=== PATIENT | female | born 1970 | race African-American/Black ===

== ENCOUNTER 2023-08-09 16:57 | Inpatient (IN) | payer OTHER, SELFPAY ==
[2023-08-09 17:16] VITALS: BP 175/101; PULSE 121; RESP 16; TEMP 36.6; O2SAT 98; BMI 30.9
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
[2023-08-09 18:03] VITALS: BP 150/95; PULSE 112; RESP 18; TEMP 36.4; O2SAT 97
--- NOTE | 2023-08-09 18:18 | PC.NURSE ---
pt refuses lab work. Per provider, this is a nonissue.
--- NOTE | 2023-08-09 18:35 | PC.NURSE ---
pt becoming more agitated, more focused on leaving. LIDYA Tyson, aware of patients escalation. Plan is to have see patient as soon as possible, develop plan for escalation.
--- NOTE | 2023-08-09 18:40 | MHC.EDTECH ---
PATIENT REFUSED LABS ,PROVIDER DAMARIS AND RN BLANCA AWARE .
[2023-08-09 20:03] LABS: MANUAL DIFF FLAG NO
[2023-08-09 20:04] LABS: Basophils Percent Auto 0.4 % (0-2); Eosinophils Percent Auto 0.2 % (0-4); Hematocrit 43.5 % (37.0-47.0); Hemoglobin 14.4 g/dl (12.0-16.0); Imm Gran Abs Auto 0.05 X10*3/uL (0.00-0.03); Imm Gran Pct Auto 0.5 % (0.0-0.4); Lymphocytes Absolute Auto 1.6 X10*3/uL (1.2-4.9); Lymphocytes Percent Auto 16.3 % (20-40); Mean Corpuscular HGB Conc 33.1 g/dl (31.0-35.0); Mean Corpuscular Hemoglobin 28.1 pg (27.0-33.0); Mean Platelet Volume 8.9 fL (9.4-12.3); Monocytes Absolute Auto 0.7 X10*3/uL (0.1-1.2); Monocytes Percent Auto 7.1 % (2-11); Neutrophils Absolute Auto 7.6 x10*3/uL (2.0-8.3); Neutrophils Percent Auto 75.5 % (45-73); Platelet Count 377 X10*3/uL (160-400); Red Blood Count 5.12 X10*6/uL (4.20-5.50); Red Cell Distribution Width 16.4 % (11.0-16.0); White Blood Count 10.1 X10*3/uL (4.8-10.8)
[2023-08-09 20:17] LABS: Valproate < 12.5 mcg/mL (50.0-100.0)
[2023-08-09 20:19] LABS: Alanine Aminotransferase 23 U/L (0-31); Albumin Level 4.7 g/dL (3.5-5.0); Alkaline Phosphatase 93 U/L (39-117); Anion Gap 16 (12-20); Aspartate Amino Transferase 37 U/L (5-31); Bilirubin Total 0.5 mg/dL (0.0-1.0); Blood Urea Nitrogen 12 mg/dL (9-16); Calcium 10.1 mg/dL (8.4-10.2); Carbon Dioxide 23 mmol/L (22-29); Chloride 105 mmol/L (96-108); Creatinine Clr Calc Pharmacy 87.4; Estimated Glomerular Filt Rate > 60; Ethanol < 10 mg/dL; Glucose Random 99 mg/dL (60-115); Magnesium 2.3 mg/dL (1.6-2.6); Potassium 3.5 mmol/L (3.3-5.1); Sodium 140 mmol/L (135-145); Total Protein 8.5 g/dL (6.5-8.0)
[2023-08-09 22:21] LABS: Appearance Urine Clear; Color Urine Yellow; Glucose Urine UA Negative (Negative); Leukocyte Esterase Urine Trace (Negative); Nitrite Urine Negative (Negative); PH 5.5 (5.0-9.0); UMIC TRIGGER UACC YES; Urine Blood Moderate (2+) (Negative); Urine Ketones 15 mg/dL (Negative); Urine Protein Trace mg/dL (Neg-Trace)
[2023-08-09 22:27] LABS: Amphetamine Screen Urine Not Detected (Not Detect); Barbiturates, Urine Not Detected (Not Detect); Benzodiazepines Screen Urine Not Detected (Not Detect); Cannabinoid Screen Urine Not Detected (Not Detect); Cocaine Screen Urine Not Detected (Not Detect); Fentanyl, urine Not Detected (Not Detect); Opiate Screen Urine Not Detected (Not Detect); Phencyclidine Screen Urine Not Detected (Not Detect)
[2023-08-09 22:32] LABS: Bacteria Urine 1+ (None Seen); Hyaline Casts Urine 0-2 /LPF (0-2); RBC Urine 0-2 /HPF (0-2); UACC Culture Trigger YES
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
--- NOTE | 2023-08-10 00:40 | PC.NURSE ---
Patient is sitting in common area, with difficulty repeated request patient agreed to provide urine sample and to have her lab drawn, patient is on 1:1 for safety check due to intrusive and exit seeking behavior, patient is highly accusatory not maliciously but due to paranoia, patient responding to internal stimuli, asking for discharge numerously, thought content paranoid, med rec completed but due to numerous change med is not approved yet, refused olanzapine per report, patient was assessed by care team placed on section 12, with disposition JUAN follow up due to inability to reach out to collateral, VSS, will continue to monitor.
[2023-08-10 06:09] VITALS: BP 160/95; PULSE 105; RESP 18; O2SAT 99
--- NOTE | 2023-08-10 06:29 | PC.NURSE ---
Patient was whole night sitting the common are watching TV, 1:1 for safety check, attempted to exit couple of times requiring security presence, VSS, will continue to monitor.
[2023-08-10 18:16] VITALS: RESP 18
--- NOTE | 2023-08-10 18:17 | PC.NURSE ---
Marlene was OOB and pacing in the halls for most of the shift today. Very preoccupied and observed engaging in self dialoguing for most of the shift. Marlene tried pushing on the door several times and had to be redirected. Marlene also was redirected when going into peers rooms. There were several requests for clean clothes today which were given and multiple beverages although she has not eaten any solid food. Much of Marlene's dialoguing has been about the chioma and redemption. She instructed staff at one point to wash our hands and come have seats so the chioma could instruct us where to go. When we did not Marlene verbalized we would all be by tonight . No medications ordered or given.
--- NOTE | 2023-08-10 18:23 | PC.NURSE ---
Marlene remains on a 1:1 for safety.
--- NOTE | 2023-08-10 20:05 | PC.NURSE ---
Addendum entered by Alfa Cook RN 08/10/23 20:11: Pt remains 1:1 for safety and elopement risk at this time. Original Note: Assumed care of pt. Pt ambulating on unit with no acute medical or behavioral concerns at this time. Pt engaged with staff, delusional and occasionally inappropriate. Otherwise, compliant with staff requests.
--- NOTE | 2023-08-10 21:58 | PC.NURSE ---
Pt remains sitting in common area, intermittently up and ambulating short distances, then returning to chair. Pt stating that she believes she will be going home this pm. Reoriented to current environment and plan of care. No acute medical or behavioral concerns at this time. 1:1 sitter present for safety and elopement risk.
[2023-08-10 22:00] VITALS: RESP 18
--- NOTE | 2023-08-10 22:53 | PC.NURSE ---
Assumed care of patient at 2245, patient resting on chair in common area at this time, respirations even and unlabored, skin pwd, no apparent distress. Per previous nurse, patient has not slept in nearly 40 hours, refuses meds but also has no medications ordered. Continue plan of care for inpt bed search
--- NOTE | 2023-08-10 23:27 | PC.NURSE ---
patient appears pre-occupied by internal thoughts and dialogue, occasionally speaking to herself. Patient is re-directable with verbal commands. 1:[address] due to exit seeking behavior. Patient has no linear thought process at this time
--- NOTE | 2023-08-11 | ECG_ITS ---
Test Reason : RULE OT ELEVATED QTC Blood Pressure : / mmHG Vent. Rate : 068 BPM Atrial Rate : 068 BPM P-R Int : 152 ms QRS Dur : 078 ms QT Int : 400 ms P-R-T Axes : 060 005 011 degrees QTc Int : 425 ms Normal sinus rhythm Normal ECG No previous ECGs available Referred By: Eunice Jo Electronically Signed By:RENEE TRUJILLO
--- NOTE | 2023-08-11 02:26 | PC.NURSE ---
pt becoming increasingly tired, requesting to shower and then go to room to lay down. Patient showered without issue and is now in room resting comfortably, offers no complaints to this RN
[2023-08-11 05:23] VITALS: RESP 14
--- NOTE | 2023-08-11 05:24 | PC.NURSE ---
patient has been sleeping since 339, will not wake for vitals due to patient being awake for almost two days prior to this
--- NOTE | 2023-08-11 10:09 | PC.NURSE ---
Alert and oriented, slept until 10am, eating breakfast at this time
--- NOTE | 2023-08-11 11:05 | PC.NURSE ---
Patient daughter called, daughter stating her mother is a risk to not only herself but others. States her mother does not take any medications that she is prescribed and is not doing well and would like her to be admitted inpatient
--- NOTE | 2023-08-11 11:20 | PC.NURSE ---
Patient stating she is fine to go home, and wants to be discharged. Meeting with tato at this time
--- NOTE | 2023-08-11 12:08 | PC.NURSE ---
Patient use facility phone to call employee [employer]rmag[employer] home. Patient stating she needed to call out so she wouldn't be fired. Patient informed over phone from that she did not have a job to return to and they would be dropping of her her final check for her. Patient upset about losing her job, able to be re-directed
[2023-08-11 14:41] LABS: COVID-19 Test Negative (Negative); IDNOW Serial# 08D9AD1C
--- NOTE | 2023-08-11 14:53 | PHA.MEDREC ---
Pharmacy Consult ? Medication Reconciliation Pharmacy has completed the medication reconciliation. Reviewed med rec done by nursing
--- NOTE | 2023-08-11 17:37 | PC.NURSE ---
Calm and cooperative, ambulating with steady gait on unit, check from employer locked in locker, denies pain or discomfort. Patient on phone with daughter. Provided with food and fluids per patient request. Resting in bed at this time
--- NOTE | 2023-08-11 18:16 | PC.NURSE ---
EKG obtained. unit notified
[2023-08-11 19:00] VITALS: BP 136/63; PULSE 80; RESP 18; TEMP 36.7
--- NOTE | 2023-08-11 19:00 | PC.NURSE ---
transferred to unit by two rn`s
--- NOTE | 2023-08-11 19:55 | PC.NURSE ---
This nurse assumed care of this pt at 19:00
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
[2023-08-12 08:22] VITALS: BP 128/71; PULSE 75; RESP 16; TEMP 36.5; O2SAT 97
[2023-08-12 09:00] LABS: MANUAL DIFF FLAG NO
[2023-08-12 09:03] LABS: Basophils Absolute Auto 0.1 X10*3/uL (0.0-0.2); Basophils Percent Auto 0.8 % (0-2); Eosinophils Absolute Auto 0.2 X10*3/uL (0.0-0.4); Eosinophils Percent Auto 2.8 % (0-4); Hematocrit 39.6 % (37.0-47.0); Hemoglobin 13.3 g/dl (12.0-16.0); Imm Gran Abs Auto 0.02 X10*3/uL (0.00-0.03); Imm Gran Pct Auto 0.3 % (0.0-0.4); Lymphocytes Absolute Auto 1.9 X10*3/uL (1.2-4.9); Lymphocytes Percent Auto 30.2 % (20-40); Mean Corpuscular HGB Conc 33.6 g/dl (31.0-35.0); Mean Corpuscular Hemoglobin 28.9 pg (27.0-33.0); Mean Corpuscular Volume 85.9 fL (80.0-98.0); Mean Platelet Volume 9.1 fL (9.4-12.3); Monocytes Absolute Auto 0.6 X10*3/uL (0.1-1.2); Monocytes Percent Auto 9.9 % (2-11); Neutrophils Absolute Auto 3.6 x10*3/uL (2.0-8.3); Platelet Count 354 X10*3/uL (160-400); Red Blood Count 4.61 X10*6/uL (4.20-5.50); Red Cell Distribution Width 15.8 % (11.0-16.0); White Blood Count 6.4 X10*3/uL (4.8-10.8)
[2023-08-12 09:26] LABS: Alanine Aminotransferase 46 U/L (0-31); Alkaline Phosphatase 79 U/L (39-117); Anion Gap 12 (12-20); Aspartate Amino Transferase 51 U/L (5-31); Bilirubin Total 0.6 mg/dL (0.0-1.0); Blood Urea Nitrogen 11 mg/dL (9-16); Calcium 8.9 mg/dL (8.4-10.2); Carbon Dioxide 26 mmol/L (22-29); Chloride 102 mmol/L (96-108); Cholesterol 216 mg/dL (<200); Creatinine Clr Calc Pharmacy 90.5; Estimated Glomerular Filt Rate > 60; Glucose Fasting 93 mg/dL (60-99); HDL Cholesterol 41 mg/dL (>40); LDL Cholesterol Calculated 164 mg/dL (<100); Potassium 3.7 mmol/L (3.3-5.1); Sodium 136 mmol/L (135-145); Total Protein 7.2 g/dL (6.5-8.0); Triglycerides 57 mg/dL (<150)
[2023-08-12 09:43] LABS: TSH reflex Free T4 2.43 uIU/mL (0.32-4.0); Thyroid Stimulating Hormone 2.43 uIU/mL (0.32-4.0)
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
[2023-08-12 18:00] VITALS: BP 122/71; PULSE 76; RESP 18; TEMP 36.2; O2SAT 99
[2023-08-13 08:24] VITALS: BP 92/54; PULSE 72; RESP 16; TEMP 36.5; O2SAT 98
[2023-08-13 08:52] VITALS: BP 117/63
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
[2023-08-13 18:00] VITALS: BP 128/68; PULSE 68; RESP 16; TEMP 36.6; O2SAT 97
[2023-08-14 08:30] VITALS: BP 118/76; PULSE 100; RESP 16; TEMP 36.2; O2SAT 100
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
== END 2023-08-14 11:29 | disposition home or self-care (01) | DRG 751 ==
LOC: HO.ED 18:50 → HO.PM5 08-11 18:47
PROVIDERS: Emergency Medicine; Physician Assistant; Admitting Provider Psychiatry & Neurology Psychiatry; Emergency Provider Emergency Medicine Emergency Medical Services; Visit Provider Psychiatry & Neurology Psychiatry
DX: F29 Unspecified psychosis not due to a substance or known physiological condition (principal); F43.10 Post-traumatic stress disorder, unspecified; Z20.822 Contact with and (suspected) exposure to COVID-19
CPT/HCPCS: 36415; 80053; 80061; 80164; 80307; 81001; 83735; 84439; 84443; 85025; 87086; 87635; 93005; 99285; S9485

== ENCOUNTER → 2023-08-11 18:44 | Outpatient (BNV) | payer OTHER, SELFPAY | PROVIDERS: Admitting Provider Psychiatry & Neurology Psychiatry; Emergency Provider Emergency Medicine Emergency Medical Services; Visit Provider Psychiatry & Neurology Psychiatry | DX: F29 Unspecified psychosis not due to a substance or known physiological condition (principal); F43.11 Post-traumatic stress disorder, acute | CPT/HCPCS: 99231; 99232 ==